=== PATIENT | male | born 1950 | race Caucasian/White ===

== ENCOUNTER 2018-12-21 07:37 | Inpatient (IN) | payer MEDICARE, OTHER ==
[~2018-12-21] VITALS: Ht 182.9 cm; Wt 103.6 kg
[2018-12-21] VITALS (378 sets, daily range): BP systolic 107–139; BP diastolic 63–89; PULSE 14–75; TEMP 98–98.6; O2SAT 95–100
[~2018-12-21 07:37] MED LIST: ACIPHEX20 MG PO; ASPIRIN 32325 MG/TAB PO; RAMIPRIL5 MG; TOPROL XL 50MG50 MG PO; VYTORIN 10 MG-11 TAB PO
[2018-12-21 08:04] LABS: BASO % 0.6 % (0.0-2.0); EOS # 0.1 (0.0-0.7); EOS % 1.8 % (0-4.0); GRAN # 4.2 (1.4-6.5); GRAN % 58.3 % (42.2-75.2); HEMATOCRIT 52.1 % (42.0-52.0); HEMOGLOBIN 17.8 g/dl (13.5-18.0); LYMPH # 2.1 (1.2-3.4); LYMPH % 29.7 % (20.0-51.0); MEAN CELL VOLUME 90 fl (80.0-100.0); MEAN CORPUSCULAR HEMOGLOBIN 31 pg (27.0-31.0); MEAN CORPUSCULAR HGB CONC 34 g/dl (33.0-37.0); MEAN PLATELET VOLUME 9.5 fl (7.4-10.4); MONO # 0.7 (0.1-0.6); PLATELET COUNT 275 K/mm3 (130-400); RED BLOOD COUNT 5.77 M/mm3 (4.20-5.60); REDCELL DISTRIBUTION WIDTH-CV 12.8 % (11.5-14.5)
[2018-12-21 08:09] LABS: INR 0.9 (0.8-3.0); PROTHROMBIN TIME 10.6 SECONDS (9.7-12.8)
[2018-12-21 08:11] LABS: ALBUMIN 4.6 gm/dL (3.5-5.0); CALCIUM 9.8 mg/dL (8.4-10.2); CREATININE, serum 1.32 (0.66-1.25); POTASSIUM 4.4 mmol/L (3.4-5.0); TOTAL PROTEIN 7.6 gm/dL (6.4-8.2)
[2018-12-21 08:12] LABS: PARTIAL THROMBOPLASTIN TIME 37.1 SECONDS (26.0-37.0)
[2018-12-21 08:26] LABS: TROPONIN-I 0.385 ng/mL (0.000-0.035)
[2018-12-21] MEDS ORDERED: MASON NATURAL1200 MG PO (09:10)
--- NOTE | 2018-12-21 09:58 | NUR ---
Patient arrives to ICU room 4 via ED cart and ambulates with steady gait to ICU bed. He is attached to monitors and initial assessment and vitals are as charted. Patient denies chest pain, pressure, or palpitations. NSR noted on monitor. quality assurance/r&d lab technician present to complete ordered exam. Care assumed at this time.
[2018-12-21] MEDS ORDERED: ZANTAC 300300 MG PO (10:27)
[2018-12-21] MEDS ORDERED: LEVITRA20 MG PO (10:28)
[2018-12-21] MEDS ORDERED: PROSCAR 5MG5 MG PO (10:28)
[2018-12-21] MEDS ORDERED: DELATESTRYL200 MG/ML IM (10:31)
--- NOTE | 2018-12-21 12:21 | NUR ---
Patient departs with cytology laboratory manager staff for ordered LHC, signed consent sent with.
--- NOTE | 2018-12-21 12:51 | NUR ---
SEE MERGE DOCUMENTATION FOR MEDICATION ADMINISTRATION TIMES AND INTRA/POST PROCEDURE SEDATION ASSESSMENTS.
--- NOTE | 2018-12-21 13:31 | NUR ---
Phone report recieved from TITA Stein.
--- NOTE | 2018-12-21 13:45 | NUR ---
Patient returns from general production laborer via ICU bed and is replaced to in room monitor. Right groin site CDI and soft with distal pulses unchanged from initial assessment. Patient drowsy but oriented. Care resumed.
--- NOTE | 2018-12-21 13:45 | NUR ---
Pt transferred from laboratory development technician to ICU 4 at this time. VS monitors connected upon arrival; VS's WNL. Pt remains slightly drowsy but converses with staff and follows all commands. Bedside handoff to TITA Rodriguez. Right femoral access site assessed; dressing remains dry and intact. Site soft to palpation. Right DP pulse remains +2. No s/sx of hematoma noted. Education provided to pt regarding flat time and movement restrictions. All questions answered at this time.
--- NOTE | 2018-12-21 13:59 | NUR ---
Update called to patient and all questions asked answered.
--- NOTE | 2018-12-21 16:02 | NUR ---
SAS BI DEVELOPER student met with the patient to discuss a discharge plan. The patient lives in [place] with his family. The patient does not use DME and reports independence with ADLs. The patient's PCP is Dr. Mcmahon and patient receives medications from [facility]. The patient does not have advanced directives in the EMR and was not interested in a DPOA-HC form. The patient plans to return home upon discharge with his providing transportation. There are no additional needs at this time.
--- NOTE | 2018-12-21 21:32 | NUR ---
PT RESTING IN BED, DENIES PAIN AT THIS TIME, RIGHT GROIN SITE DRSG C/D/I, SITE SOFT AND NONTENDER. PT FLAT TIME OVER AT 1845, PT ABLE TO STAND AT SIDE OF BED AND USE URINAL TO VOID, DENIES LIGHTHEADEDNESS OR DIZZINESS. VSS, LUNGS CLEAR, BS PRESENT, PULSES PALPABLE, DENIES ANY NUMBNESS OR TINGLING IN RLE. WILL CONTINUE TO MONITOR PT STATUS AND UPDATE PROVIDERS NEEDED.
[2018-12-22] VITALS (306 sets, daily range): BP systolic 113–151; BP diastolic 65–87; PULSE 51–65; TEMP 97.4–98.5; O2SAT 94–100
--- NOTE | 2018-12-22 08:00 | NUR ---
Shift assessment complete at this time. Plan of care reviewed at bedside with patient. Additional time taken to address any other needs or concerns. Vitals stable. Pt denies pain or any other discomfort. Bed in low position, call light within reach. R femoral cath site clean, dry, et intact with no drainage or hematoma. Will continue to monitor.
[2018-12-22 09:02] LABS: CREATININE, serum 1.05 (0.66-1.25); MAGNESIUM 2.2 mg/dL (1.6-2.3)
[2018-12-22 09:09] LABS: BASO % 0.4 % (0.0-2.0); EOS # 0.1 (0.0-0.7); EOS % 1.4 % (0-4.0); GRAN # 5.9 (1.4-6.5); GRAN % 76.5 % (42.2-75.2); HEMATOCRIT 45.6 % (42.0-52.0); LYMPH # 1.3 (1.2-3.4); LYMPH % 16.9 % (20.0-51.0); MEAN CELL VOLUME 90 fl (80.0-100.0); MEAN CORPUSCULAR HEMOGLOBIN 31 pg (27.0-31.0); MEAN CORPUSCULAR HGB CONC 34 g/dl (33.0-37.0); MEAN PLATELET VOLUME 9.3 fl (7.4-10.4); MONO # 0.3 (0.1-0.6); MONO % 4.3 % (1.7-9.3); PLATELET COUNT 234 K/mm3 (130-400); RED BLOOD COUNT 5.05 M/mm3 (4.20-5.60); REDCELL DISTRIBUTION WIDTH-CV 12.9 % (11.5-14.5)
[2018-12-22 09:31] LABS: HEMOGLOBIN 15.5 g/dl (13.5-18.0)
--- NOTE | 2018-12-22 10:24 | NUR ---
Initial visit; Patient thanked for looking in on him and let her know he had received Holy Communion by [place] yesterday.
--- NOTE | 2018-12-22 12:00 | NUR ---
Pt resting comfortably in bed. Denies pain or any other discomfort. Vitals stable at this time. R femoral cath site clean, dry, et intact with no drainage or hematoma noted. Bed in low position, call light within reach. Will continue to monitor.
--- NOTE | 2018-12-22 16:00 | NUR ---
Pt resting comfortably in bed. Denies pain or any other discomforts. Vitals stable at this time. R femoral cath site clean, dry, et intact with no drainage or hematoma noted. Bed in low position, call light within reach. Will continue to monitor.
--- NOTE | 2018-12-22 19:20 | NUR ---
Bedside report given to TITA Hanks.
--- NOTE | 2018-12-22 19:20 | NUR ---
Received report from TITA Unger.
[2018-12-23] VITALS: BP 138/81; PULSE 50; TEMP 97.8
[2018-12-23 04:00] VITALS: BP 138/88; PULSE 53; TEMP 98.3
[2018-12-23 06:08] LABS: BASO % 0.3 % (0.0-2.0); EOS # 0.1 (0.0-0.7); EOS % 1.6 % (0-4.0); GRAN # 4.2 (1.4-6.5); GRAN % 67.6 % (42.2-75.2); HEMATOCRIT 44.7 % (42.0-52.0); HEMOGLOBIN 15.4 g/dl (13.5-18.0); LYMPH # 1.3 (1.2-3.4); LYMPH % 21.4 % (20.0-51.0); MEAN CELL VOLUME 90 fl (80.0-100.0); MEAN CORPUSCULAR HEMOGLOBIN 31 pg (27.0-31.0); MEAN CORPUSCULAR HGB CONC 35 g/dl (33.0-37.0); MEAN PLATELET VOLUME 9.6 fl (7.4-10.4); MONO # 0.5 (0.1-0.6); MONO % 8.6 % (1.7-9.3); PLATELET COUNT 224 K/mm3 (130-400); RED BLOOD COUNT 4.98 M/mm3 (4.20-5.60); REDCELL DISTRIBUTION WIDTH-CV 12.6 % (11.5-14.5)
[2018-12-23 06:21] LABS: CALCIUM 9.2 mg/dL (8.4-10.2); CREATININE, serum 1.05 (0.66-1.25); POTASSIUM 4.1 mmol/L (3.4-5.0)
[2018-12-23] MEDS ORDERED: LIPITOR 80MG80 MG PO (07:13)
[2018-12-23] MEDS ORDERED: BETAPACE 80MG80 MG PO (07:13)
[2018-12-23] MEDS ORDERED: BRILINTA90 MG PO (07:13)
[2018-12-23] MEDS ORDERED: ASPIRIN E.C. 8181 MG PO (07:14)
--- NOTE | 2018-12-23 07:32 | NUR ---
Gave report to TITA Rodriguez.
--- NOTE | 2018-12-23 07:32 | NUR ---
Report recieved from TITA Hanks. Patient denies needs at this time. Right femoral site CDI and without complication. Care resumed.
[2018-12-23 08:27] VITALS: BP 145/88; PULSE 58; TEMP 98.2
--- NOTE | 2018-12-23 09:39 | NUR ---
Brilintal education not located in patient instruct and so obtained from [facility] and added to DC packet.
--- NOTE | 2018-12-23 09:57 | NUR ---
Dressing removed from right femoral site and site cleansed with chorhexadine swab x1. Left PEGA DEVELOPER.
[2018-12-23] MEDS ORDERED: ALTACE 10MG TAB10 MG PO (10:29)
--- NOTE | 2018-12-23 10:46 | NUR ---
The patient is to discharge home today, 12/23 with his providing transportation. There are no additional needs at this time.
[2018-12-23 11:56] VITALS: BP 157/99; BP 167/99; PULSE 51; TEMP 98.7
--- NOTE | 2018-12-23 12:30 | NUR ---
Dr. Castillo rounds on patient at this time and confirms plan to DC home.
[2018-12-23 13:08] VITALS: BP 156/76; PULSE 58
[2018-12-23] MEDS ORDERED: CEPHALEXIN500 M1 PO (15:54)
== END 2018-12-23 13:40 | disposition home or self-care (01) | DRG 247 ==
LOC: COL.ER 07:37 → ICU 08:29
PROVIDERS: Emergency Medicine
PROC: 027034Z Dilation of Coronary Artery, One Artery with Drug-eluting Intraluminal Device, Percutaneous Approach (ICD-10-PCS; principal; 2018-12-21)
PROC: 4A023N7 Measurement of Cardiac Sampling and Pressure, Left Heart, Percutaneous Approach (ICD-10-PCS; 2018-12-21)
PROC: B2111ZZ Fluoroscopy of Multiple Coronary Arteries using Low Osmolar Contrast (ICD-10-PCS; 2018-12-21)
DX: I21.4 Non-ST elevation (NSTEMI) myocardial infarction (principal); I10 Essential (primary) hypertension; E78.5 Hyperlipidemia, unspecified; I25.10 Atherosclerotic heart disease of native coronary artery without angina pectoris; K21.9 Gastro-esophageal reflux disease without esophagitis; G47.30 Sleep apnea, unspecified; I48.0 Paroxysmal atrial fibrillation; Z79.82 Long term (current) use of aspirin
CPT/HCPCS: 99222-AI; 99239; C1760; C1769; C1874; C1887; C1894; C9600; J0583; J1644; J2250; J3010; J7030; Q9967

== ENCOUNTER 2018-12-23 14:34 | Emergency (ER) | payer MEDICARE, OTHER ==
[~2018-12-23] VITALS: Ht 182.9 cm; Wt 104.5 kg
[~2018-12-23 14:34] MED LIST changes: +ALTACE 10MG TAB10 MG PO; +ASPIRIN E.C. 8181 MG PO; +BETAPACE 80MG80 MG PO; +BRILINTA90 MG PO; +DELATESTRYL200 MG/ML IM; +LEVITRA20 MG PO; +LIPITOR 80MG80 MG PO; +MASON NATURAL1200 MG PO; +PROSCAR 5MG5 MG PO; +ZANTAC 300300 MG PO
[2018-12-23 14:37] VITALS: BP 187/89; TEMP 96.8
[2018-12-23 15:10] LABS: BASO % 0.7 % (0.0-2.0); EOS # 0.1 (0.0-0.7); EOS % 2.3 % (0-4.0); GRAN # 3.9 (1.4-6.5); GRAN % 63.8 % (42.2-75.2); HEMATOCRIT 45.9 % (42.0-52.0); HEMOGLOBIN 15.9 g/dl (13.5-18.0); LYMPH # 1.5 (1.2-3.4); LYMPH % 23.6 % (20.0-51.0); MEAN CELL VOLUME 89 fl (80.0-100.0); MEAN CORPUSCULAR HEMOGLOBIN 31 pg (27.0-31.0); MEAN CORPUSCULAR HGB CONC 35 g/dl (33.0-37.0); MEAN PLATELET VOLUME 9.5 fl (7.4-10.4); MONO # 0.6 (0.1-0.6); MONO % 9.3 % (1.7-9.3); PLATELET COUNT 253 K/mm3 (130-400); RED BLOOD COUNT 5.15 M/mm3 (4.20-5.60); REDCELL DISTRIBUTION WIDTH-CV 12.4 % (11.5-14.5)
[2018-12-23 15:17] LABS: INR 0.9 (0.8-3.0); PROTHROMBIN TIME 10.8 SECONDS (9.7-12.8)
[2018-12-23 15:19] LABS: PARTIAL THROMBOPLASTIN TIME 36.4 SECONDS (26.0-37.0)
[2018-12-23] MEDS ORDERED: CEPHALEXIN500 M1 PO (15:54)
[2018-12-23 16:17] VITALS: PULSE 63
== END 2018-12-23 16:17 | disposition home or self-care (01) ==
LOC: COL.ER 14:34
PROVIDERS: Emergency Medicine
DX: I97.630 Postprocedural hematoma of a circulatory system organ or structure following a cardiac catheterization (principal); E78.5 Hyperlipidemia, unspecified; I10 Essential (primary) hypertension; I25.10 Atherosclerotic heart disease of native coronary artery without angina pectoris; Z95.9 Presence of cardiac and vascular implant and graft, unspecified; Z79.82 Long term (current) use of aspirin

== ENCOUNTER 2019-01-07 10:48 | Outpatient (CLI) | payer MEDICARE, OTHER ==
[~2019-01-07] VITALS: Ht 183 cm; Wt 104.8 kg
[~2019-01-07 10:48] MED LIST changes: +CEPHALEXIN500 M1 PO
[2019-01-07 11:06] VITALS: BP 144/81; PULSE 52; TEMP 97.5
[2019-01-07] MEDS ORDERED: LIPITOR 80MG80 MG PO (11:08)
[2019-01-07] MEDS ORDERED: ALTACE 10MG TAB10 MG PO (11:10)
[2019-01-07] MEDS ORDERED: BETAPACE 80MG80 MG PO (11:11)
[2019-01-07] MEDS ORDERED: BRILINTA90 MG PO (11:12)
[2019-01-07] MEDS ORDERED: ACIPHEX20 MG PO (11:13)
[2019-01-07] MEDS ORDERED: ASPIRIN E.C. 8181 MG PO (11:16)
[2019-01-07] MEDS ORDERED: CEPHALEXIN500 M1 PO (12:22)
[2019-01-07 12:50] VITALS: BP 156/88; PULSE 55; TEMP 97.5
--- NOTE | 2019-01-07 13:02 | NUR ---
Discharge instructions given. Transferred to private car by jm
== END 2019-01-07 12:58 | disposition home or self-care (01) ==
LOC: COL.CAR 10:48
DX: I48.0 Paroxysmal atrial fibrillation (principal); I10 Essential (primary) hypertension; I25.10 Atherosclerotic heart disease of native coronary artery without angina pectoris; E78.2 Mixed hyperlipidemia; Z79.82 Long term (current) use of aspirin; Z82.49 Family history of ischemic heart disease and other diseases of the circulatory system; Z95.5 Presence of coronary angioplasty implant and graft

== ENCOUNTER 2019-01-22 06:28 | Inpatient (IN) | payer MEDICARE, OTHER ==
[2019-01-22] VITALS (461 sets, daily range): BP systolic 109–141; BP diastolic 76–89; PULSE 67–99; TEMP 97.9–98.2; O2SAT 93–100
[~2019-01-22] VITALS: Ht 182.9 cm; Wt 102.2 kg
[2019-01-22] MEDS ORDERED: LEVITRA20 MG PO (06:40)
[2019-01-22 06:58] LABS: BASO % 0.6 % (0.0-2.0); EOS # 0.2 (0.0-0.7); EOS % 3.1 % (0-4.0); GRAN # 2.7 (1.4-6.5); GRAN % 55.1 % (42.2-75.2); HEMATOCRIT 48.9 % (42.0-52.0); HEMOGLOBIN 16.5 g/dl (13.5-18.0); LYMPH # 1.2 (1.2-3.4); LYMPH % 25.3 % (20.0-51.0); MEAN CELL VOLUME 92 fl (80.0-100.0); MEAN CORPUSCULAR HEMOGLOBIN 31 pg (27.0-31.0); MEAN CORPUSCULAR HGB CONC 34 g/dl (33.0-37.0); MEAN PLATELET VOLUME 9.4 fl (7.4-10.4); MONO # 0.8 (0.1-0.6); MONO % 15.5 % (1.7-9.3); PLATELET COUNT 247 K/mm3 (130-400); RED BLOOD COUNT 5.32 M/mm3 (4.20-5.60); REDCELL DISTRIBUTION WIDTH-CV 13.3 % (11.5-14.5)
[2019-01-22 07:06] LABS: ALANINE AMINOTRANSFERASE 36 U/L (21-72); ALBUMIN 4.4 gm/dL (3.5-5.0); ALKALINE PHOSPHATASE 91 U/L (50-136); ANION GAP 10 mmol/L (7-16); AST,SGOT 36 U/L (15-37); BILIRUBIN,TOTAL 0.7 mg/dL (0.0-1.0); BLOOD UREA NITROGEN 17 mg/dL (9-20); CALCIUM 9.8 mg/dL (8.4-10.2); CARBON DIOXIDE 26 mmol/L (22-30); CHLORIDE 105 mmol/L (98-107); CREATININE, serum 1.09 (0.66-1.25); GLUCOSE 95 mg/dL (74-106); POTASSIUM 4.2 mmol/L (3.4-5.0); SODIUM 140 mmol/L (137-145); TOTAL PROTEIN 7.3 gm/dL (6.4-8.2)
[2019-01-22 07:18] LABS: TROPONIN-I < 0.012 ng/mL (0.000-0.035)
[2019-01-22 07:20] LABS: PROTHROMBIN TIME 11.3 SECONDS (9.7-12.8)
--- NOTE | 2019-01-22 14:17 | NUR ---
Patient arrives vie ED cart to IM 17 and is attached to monitors. Vitals and assessment as charted. Care assumed.
--- NOTE | 2019-01-22 15:00 | NUR ---
ARMOND Mcdaniel rounds at this time for hospitalist service.
[2019-01-22 15:24] LABS: MAGNESIUM 2.1 mg/dL (1.6-2.3)
[2019-01-22 15:54] LABS: TSH w REFLEX 0.529 uIU/mL (0.465-4.680)
[2019-01-22 16:29] LABS: PARTIAL THROMBOPLASTIN TIME 59.7 SECONDS (26.0-37.0)
--- NOTE | 2019-01-22 16:52 | NUR ---
HepXa results within therapeutic range. No changes made. Amiodarone gtt decreased to 0.5mg/min at this time as per orders.
--- NOTE | 2019-01-22 19:00 | NUR ---
RECEIVED REPORT FROM TITA WINCHESTER. PT RESTING EASILY IN BED ON RA. VSS. HEPARIN GTT AT 10ML/HR AND AMIODARONE GTT AT 0.5MCG/MIN. CALL LIGHT WITHIN REACH. DENIES ANY NEEDS AT THIS TIME.
--- NOTE | 2019-01-22 19:34 | NUR ---
PER MT, PT CONVERTED TO SR WITH 1 DEGREE AVB AT THIS TIME. PT DENIES ANY CP OR PALPITATIONS.
--- NOTE | 2019-01-22 19:54 | NUR ---
PT UP TO TOILET IN ROOM. DENIES ANY DIZZINESS OR CP UPON STANDING. PT ABLE TO REPOSITION SELF BACK INTO BED. CALL LIGHT WITHIN REACH. PT REMAINS IN SR AT THIS TIME IN THE 60s.
--- NOTE | 2019-01-22 22:00 | NUR ---
PT PLACED ON 2L VIA NC AT THIS TIME. PT STATES LAST HOSPITAL STAY TO HELP WITH HIM STOPPING BREATHING WHILE HE SLEEPS HE WORE OXYGEN AT 2L. PT REFUSES CPAP AT THIS TIME SINCE HE HAS NOT HAD A SLEEP STUDY PERFORMED YET OUTPATIENT. PT STATES HE HAS PLANS TO HAVE IT DONE. VSS. PT REMAINS IN SR IN THE 60s. PT DENIES ANY CP/PRESSURE. CALL LIGHT WITHIN REACH.
[2019-01-23] VITALS (445 sets, daily range): BP systolic 116–129; BP diastolic 53–82; PULSE 52–62; TEMP 97.7–98; O2SAT 84–100
--- NOTE | 2019-01-23 01:28 | NUR ---
DISCUSSED WITH PT HE DOES NOT HAVE A CPAP AND HAS NOT DONE A SLEEP STUDY YET. THEREFORE HE SAID HE WILL NOT WEAR A CPAP HOWEVER HE WILL WEAR 2 LPM AT [facility] VIA NC.
--- NOTE | 2019-01-23 05:07 | NUR ---
LAB AT BEDSIDE. PT UP TO TOILET AND ABLE TO REPOSITION SELF BACK INTO BED. CALL LIGHT WITHIN REACH. PT DENIES ANY CP/PRESSURE OR DIZZINESS WITH AMBULATION.
[2019-01-23 05:34] LABS: BASO % 0.6 % (0.0-2.0); EOS # 0.1 (0.0-0.7); EOS % 2.9 % (0-4.0); GRAN % 62.8 % (42.2-75.2); HEMOGLOBIN 15.7 g/dl (13.5-18.0); LYMPH # 1.1 (1.2-3.4); MEAN CELL VOLUME 93 fl (80.0-100.0); MEAN CORPUSCULAR HEMOGLOBIN 31 pg (27.0-31.0); MEAN CORPUSCULAR HGB CONC 33 g/dl (33.0-37.0); MEAN PLATELET VOLUME 9.6 fl (7.4-10.4); MONO # 0.5 (0.1-0.6); MONO % 11.1 % (1.7-9.3); PLATELET COUNT 221 K/mm3 (130-400); RED BLOOD COUNT 5.08 M/mm3 (4.20-5.60); REDCELL DISTRIBUTION WIDTH-CV 13.5 % (11.5-14.5)
[2019-01-23 05:44] LABS: CALCIUM 9.2 mg/dL (8.4-10.2); CREATININE, serum 1.02 (0.66-1.25); POTASSIUM 4.2 mmol/L (3.4-5.0)
--- NOTE | 2019-01-23 10:01 | NUR ---
Discussed pt with Dr Ledezma via phone. RN requests breakfast for patient as he has been SR so no need to cardiovert. Orders received for PO Amiodarone dose, DC heparin now and DC IV amio at noon.
--- NOTE | 2019-01-23 11:08 | NUR ---
Patient lives at home with his (Emily Light [phone]) in [place], [place] and plans to return home upon recovery. Patient's brother (Moncho Light [phone]) is supportive of patient as needed. 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 Patient has no anticipated durable medical equipment needs at this time, his primary care physician is Dr. Crow Mcmahon as well as receiving care as needed from [facility] Dr. Mark Ledezma. Patient's pharmacy is [facility], and he does not have advance directive for healthcare completed or on file at this time. No further needs and social sciences lecturer will follow as needed.
--- NOTE | 2019-01-23 11:45 | NUR ---
DISCHARGE PACKET REVIEWED WITH THE PATIENT, DRIVING RESTRICTION AND RETURN TO WORK PERMIT DISCUSSED. PATIENT INSTRUCTED TO CALL DR. PATTERSON OFFICE TOMORROW TO SCHEDULE FOLLOW UP APPT AND TO CALL HOSPITAL SCHEDULING TO ARRANGE EEG APPT. PATIENT VERBALIZES UNDERSTANDING. HIS IV IS DISCONTINUED AND HE AMBULATES TO EXIT WITH FRIEND TO DRIVE HIM HOME.
--- NOTE | 2019-01-23 12:41 | NUR ---
Remains SR off Amiodarone gtt.
[2019-01-23] MEDS ORDERED: CORDARONE200 MG/TAB PO (14:30)
[2019-01-23] MEDS ORDERED: TOPROL XL 25MG25 MG PO (14:52)
== END 2019-01-23 15:00 | disposition home or self-care (01) | DRG 310 ==
LOC: COL.ER 06:28 → IMCU 10:50 → COL.ER 12:40 → IMCU 12:40 → EDBEDREQ 12:44 → IMCU 01-23 11:45
PROVIDERS: Emergency Medicine; Nurse Practitioner Family; ADMIT Student in an Organized Health Care Education/Training Program
PROC: 5A2204Z Restoration of Cardiac Rhythm, Single (ICD-10-PCS; principal; 2019-01-22)
DX: I48.0 Paroxysmal atrial fibrillation (principal); I25.10 Atherosclerotic heart disease of native coronary artery without angina pectoris; I48.92 Unspecified atrial flutter; I10 Essential (primary) hypertension; E78.5 Hyperlipidemia, unspecified; K21.9 Gastro-esophageal reflux disease without esophagitis; G47.33 Obstructive sleep apnea (adult) (pediatric); Z95.5 Presence of coronary angioplasty implant and graft; I25.2 Old myocardial infarction; Z79.82 Long term (current) use of aspirin; Z79.01 Long term (current) use of anticoagulants
CPT/HCPCS: 99222-AI; J0282; J1644; J7030; J7060

== ENCOUNTER 2019-02-14 15:50 | Outpatient (RCR) | payer MEDICARE, OTHER ==
[~2019-02-14 15:50] MED LIST changes: +CORDARONE200 MG/TAB PO; +TOPROL XL 25MG25 MG PO
== END 2019-02-17 10:41 | disposition home or self-care (01) ==
LOC: COL.CR 15:50
DX: Z48.812 Encounter for surgical aftercare following surgery on the circulatory system (principal); Z95.5 Presence of coronary angioplasty implant and graft; I25.10 Atherosclerotic heart disease of native coronary artery without angina pectoris
CPT/HCPCS: 27124; C1764

== ENCOUNTER 2019-02-18 15:31 | Outpatient (RCR) | payer MEDICARE, OTHER | END 2019-03-11 12:00 | disposition home or self-care (01) | LOC: COL.CR 15:31 | DX: Z48.812 Encounter for surgical aftercare following surgery on the circulatory system (principal); Z98.61 Coronary angioplasty status; I50.9 Heart failure, unspecified ==

== ENCOUNTER 2019-10-24 22:28 | Observation (INO) | payer MEDICARE, OTHER ==
[~2019-10-24] VITALS: Ht 182.9 cm; Wt 97.8 kg
[2019-10-24 22:52] LABS: BASO % 0.4 % (0.0-2.0); EOS # 0.1 (0.0-0.7); EOS % 1.6 % (0-4.0); GRAN # 4.7 (1.4-6.5); GRAN % 66.3 % (42.2-75.2); HEMATOCRIT 41.6 % (42.0-52.0); HEMOGLOBIN 14.1 g/dl (13.5-18.0); LYMPH # 1.5 (1.2-3.4); LYMPH % 20.9 % (20.0-51.0); MEAN CELL VOLUME 91 fl (80.0-100.0); MEAN CORPUSCULAR HEMOGLOBIN 31 pg (27.0-31.0); MEAN CORPUSCULAR HGB CONC 34 g/dl (33.0-37.0); MEAN PLATELET VOLUME 9.1 fl (7.4-10.4); MONO # 0.7 (0.1-0.6); MONO % 10.2 % (1.7-9.3); PLATELET COUNT 260 K/mm3 (130-400); RED BLOOD COUNT 4.56 M/mm3 (4.20-5.60); REDCELL DISTRIBUTION WIDTH-CV 13.6 % (11.5-14.5)
[2019-10-24 22:58] LABS: PROTHROMBIN TIME 10.6 SECONDS (9.7-12.8)
[2019-10-24 23:00] LABS: PARTIAL THROMBOPLASTIN TIME 34.6 SECONDS (26.0-37.0)
[2019-10-24] MEDS ORDERED: CORDARONE200 MG/TAB PO (23:00)
[2019-10-24] MEDS ORDERED: TOPROL XL 25MG25 MG PO (23:03)
[2019-10-24 23:05] LABS: ALANINE AMINOTRANSFERASE 39 U/L (4-49); ALBUMIN 4.1 gm/dL (3.5-5.0); ALKALINE PHOSPHATASE 94 U/L (50-136); ANION GAP 7 mmol/L (7-16); AST,SGOT 42 U/L (15-37); BILIRUBIN,TOTAL 0.7 mg/dL (0.0-1.0); BLOOD UREA NITROGEN 16 mg/dL (9-20); CALCIUM 9.8 mg/dL (8.4-10.2); CARBON DIOXIDE 26 mmol/L (22-30); CHLORIDE 104 mmol/L (98-107); GLUCOSE 107 mg/dL (74-106); SODIUM 137 mmol/L (137-145); TOTAL PROTEIN 7.1 gm/dL (6.4-8.2)
[2019-10-24] MEDS ORDERED: VIAGRA100 M1 PO (23:07)
[2019-10-24 23:17] LABS: TROPONIN-I < 0.012 ng/mL (0.000-0.035)
[2019-10-25 05:26] VITALS: BP 147/76; PULSE 54; TEMP 97.6
--- NOTE | 2019-10-25 06:38 | NUR ---
Pt admission assessment completed, charted, alert, oriented, roomair, independent. No swelling, edema, N/V/D, tingling, numbness, SOA as per pt. No open cuts/sore over body, unlabor breathing, diminished heart sound. Pt complained of headache, called hospitalist, Uday, provided tylenol as per his phone order. I/V fluid running without complication. Helped him settled down on bed, call light on reach. No further needs at this time.
[2019-10-25 07:20] VITALS: BP 154/85; PULSE 53; TEMP 97.7
--- NOTE | 2019-10-25 09:40 | NUR ---
Assessment complete. Patient relaxing in bed, awake. States he feels relatively normal. Also stated concerns regarding him morning medications, I assured him the hospitalist is rounding this am and that this should get resolved. Headache has subsided completely at this point. Patient consumed all of his breakfast. Denies pain or discomfort at this time. IV site CD&I, IVF infusing at this time. No other needs were expressed at this time. Call light is in reach.
[2019-10-25 13:01] VITALS: BP 155/77; PULSE 52; TEMP 97.7
[2019-10-25 16:45] VITALS: BP 142/77; PULSE 52; TEMP 98.1
[2019-10-25 17:49] LABS: HEMATOCRIT 44.4 % (42.0-52.0); HEMOGLOBIN 14.9 g/dl (13.5-18.0)
--- NOTE | 2019-10-25 17:58 | NUR ---
Patient has had a very uneventful day. He has had no complaints of pain or discomfort, minimal requests. He is aware of his POC since seeing the hospitalist and cardiology this morning. Still waiting on a stool sample at this time for stool occult. Conintuing to monitor, no other needs. Call light is in reach.
--- NOTE | 2019-10-25 20:00 | NUR ---
Received report from TITA Robertson. A/Ox4. Denies any pain at this time. States he has a headache, PRN tylenol administered as requested by pt. Scheduled meds administered. Tele monitor in place. INT to RFA intact, flushed w/o complications, dressing CDI. Pt aware need for stool sample. Needs met at this time. Pt is independent. Call light within reach.
[2019-10-25 23:45] VITALS: BP 140/75; PULSE 47; PULSE 58; TEMP 97.7
[2019-10-26 04:58] VITALS: BP 136/77; PULSE 56; TEMP 97.4
--- NOTE | 2019-10-26 06:32 | NUR ---
Pt uneventful during this shift. call light within reach.
--- NOTE | 2019-10-26 06:50 | NUR ---
Report given to TITA Robertson.
[2019-10-26 07:06] LABS: BASO % 0.5 % (0.0-2.0); EOS # 0.2 (0.0-0.7); EOS % 2.6 % (0-4.0); GRAN # 3.7 (1.4-6.5); GRAN % 64.6 % (42.2-75.2); HEMATOCRIT 43.5 % (42.0-52.0); HEMOGLOBIN 14.7 g/dl (13.5-18.0); LYMPH # 1.4 (1.2-3.4); LYMPH % 23.6 % (20.0-51.0); MEAN CELL VOLUME 92 fl (80.0-100.0); MEAN CORPUSCULAR HEMOGLOBIN 31 pg (27.0-31.0); MEAN CORPUSCULAR HGB CONC 34 g/dl (33.0-37.0); MEAN PLATELET VOLUME 9.3 fl (7.4-10.4); MONO # 0.5 (0.1-0.6); MONO % 8.4 % (1.7-9.3); PLATELET COUNT 227 K/mm3 (130-400); RED BLOOD COUNT 4.74 M/mm3 (4.20-5.60); REDCELL DISTRIBUTION WIDTH-CV 13.7 % (11.5-14.5)
[2019-10-26 07:28] VITALS: BP 142/79; PULSE 53; TEMP 97.4
[2019-10-26 08:22] LABS: CALCIUM 9.5 mg/dL (8.4-10.2); MAGNESIUM 2.2 mg/dL (1.6-2.3); POTASSIUM 4.2 mmol/L (3.4-5.0)
--- NOTE | 2019-10-26 08:46 | NUR ---
Assesment complete. Patient sitting up in bed at this time, awake and alert. Denies pain or discomfort at this time. IV site is CD&I, flushed well. Patient remains ambulatory and indempendent in room with no issues. Held amiodarone this am as pulse was 53, pharmacy recommended holding and speaking with cardio when this round. Conitnuing to monitor. Call light is in reach.
[2019-10-26] MEDS ORDERED: NORVASC 5MG5 MG/TAB PO (08:56)
--- NOTE | 2019-10-26 09:05 | NUR ---
Clothes Separator met with the patient to complete initial intake. The patient lives in [facility] with his , Emily and their son. The patient denies DME use and is independent with ADLs. The patient's PCP is Dr. Mcmahon and patient receives medications from [facility]. The patient does not have advance directives in the EMR and was not interested in DPOA-HC form at this time. The patient plans to return home at discharge with Emily providing transportation. There are no additional needs at this time.
--- NOTE | 2019-10-26 11:00 | NUR ---
Patient left the floor at this time. Discharge instructions were discussed. No further questions or concerns. Patient was escorted out on foot with [facility] Staff.
== END 2019-10-26 11:01 | disposition home or self-care (01) ==
LOC: COL.ER 22:28 → MEDICAL 10-25 03:40
PROVIDERS: Family Medicine; Physician Assistant; ADMIT Hospitalist
DX: R07.89 Other chest pain (principal); I16.0 Hypertensive urgency; K92.1 Melena; N17.9 Acute kidney failure, unspecified; I48.91 Unspecified atrial fibrillation; I10 Essential (primary) hypertension; I25.10 Atherosclerotic heart disease of native coronary artery without angina pectoris; K21.9 Gastro-esophageal reflux disease without esophagitis; E78.5 Hyperlipidemia, unspecified; Z79.82 Long term (current) use of aspirin
CPT/HCPCS: C9113; G0378; J7030